=== PATIENT | male | born 1945 | race Caucasian/White ===

== ENCOUNTER 2020-07-26 09:38 | Emergency (ER) | payer MEDICARE ==
[~2020-07-26] VITALS: Ht 177.8 cm; Wt 77.1 kg
== END 2020-07-26 11:06 | disposition home or self-care (01) ==
LOC: ER 09:38
DX: S93.601A Unspecified sprain of right foot, initial encounter (principal); F17.210 Nicotine dependence, cigarettes, uncomplicated; W20.8XXA Other cause of strike by thrown, projected or falling object, initial encounter
CPT/HCPCS: 73630; 99283-25

== ENCOUNTER 2020-10-04 17:40 | Emergency (ER) | payer MEDICARE ==
[~2020-10-04] VITALS: Ht 177.8 cm; Wt 74.8 kg
[2020-10-04 19:39] LABS: Source, Urine Clean Catch
[2020-10-04 19:46] LABS: Appearance, Urine Clear (Clear); Bilirubin, Urine Neg (Neg); Blood, Urine Neg (Neg); Color, Urine Yellow (P-Yellow); Glucose Qualitative, Urine Neg (Neg); Ketones, Urine Neg (Neg); Leukocyte Esterase, Urine Neg (Neg); Nitrite, Urine Neg (Neg); Protein, Urine Neg (Neg); Urobilinogen, Urine NORM (Normal); pH, Urine 6.5 (5.0-8.0)
== END 2020-10-04 20:53 | disposition left against medical advice (07) ==
LOC: ER 17:40
PROVIDERS: Emergency Medicine
DX: M48.56XA Collapsed vertebra, not elsewhere classified, lumbar region, initial encounter for fracture (principal); F17.210 Nicotine dependence, cigarettes, uncomplicated
CPT/HCPCS: 72070; 72100; 74176; 81003; 99284-25

== ENCOUNTER → 2022-02-01 | Outpatient (CLI) | payer MEDICARE | END | disposition home or self-care (01) | LOC: LAB SHORT 07:06 → LAB 07:06 | DX: D49.0 Neoplasm of unspecified behavior of digestive system (principal) | CPT/HCPCS: 88173 ==

== ENCOUNTER 2022-04-25 10:31 | Day surgery (SDC) | payer MEDICARE ==
[~2022-04-25] VITALS: Ht 177.8 cm; Wt 76.4 kg
--- NOTE | 2022-04-25 14:32 | NUR ---
04/25/22 1432 Rivas Gimenez 10MLS OF INJECTABLE NORMAL SALINE MIXED WITH 0.05MG OF EPI TO CREATE A SOLUTION OF NORMAL SALINE WITH EPI 1:200,000. 3MLS OF SOLUTION INJECTED BY DR. LEON AT START OF CASE.
--- NOTE | 2022-04-25 16:46 | NUR ---
04/25/22 7222 Pinky White ARIA DRAIN TEACHING PROVIDED WITH LOG SHEET AND CUP FOR EMPTYING PROVIDED. PT STATES IT IS PAINFUL AT OP SITE BUT REFUSES PAIN MEDICAITON AT THIS TIME. AT CHAIRSIDE. PT TOLERATING PO FLUIDS WELL AND DENIES NAUSEA.
== END 2022-04-25 17:30 | disposition home or self-care (01) ==
LOC: ORSCSDS 10:31
PROVIDERS: Otolaryngology
PROC: 0CB80ZZ Excision of Right Parotid Gland, Open Approach (ICD-10-PCS; principal; 2022-04-25 11:45)
DX: D11.0 Benign neoplasm of parotid gland (principal); I10 Essential (primary) hypertension; F17.210 Nicotine dependence, cigarettes, uncomplicated
CPT/HCPCS: 88307; A9270; J0171; J1100; J1885; J2370; J2405; J2704; J3010; J7120

== ENCOUNTER 2022-11-21 09:13 | Day surgery (SDC) | payer MEDICARE ==
[~2022-11-21] VITALS: Ht 182.9 cm; Wt 74.6 kg
[~2022-11-21 09:13] MED LIST: OMEP20ER PO
[2022-11-21 13:54] VITALS: BP 164/90
== END 2022-11-21 13:53 | disposition home or self-care (01) ==
LOC: ORSCSDS 09:13
PROVIDERS: Internal Medicine Gastroenterology
PROC: 0DB78ZX Excision of Stomach, Pylorus, Via Natural or Artificial Opening Endoscopic, Diagnostic (ICD-10-PCS; principal; 2022-11-21 12:00)
PROC: 0DB98ZX Excision of Duodenum, Via Natural or Artificial Opening Endoscopic, Diagnostic (ICD-10-PCS; principal; 2022-11-21 12:00)
DX: R10.13 Epigastric pain (principal); K29.80 Duodenitis without bleeding; K22.70 Barrett's esophagus without dysplasia; K29.70 Gastritis, unspecified, without bleeding; B96.81 Helicobacter pylori [H. pylori] as the cause of diseases classified elsewhere; F17.210 Nicotine dependence, cigarettes, uncomplicated; Z79.899 Other long term (current) drug therapy
CPT/HCPCS: 88305; 88342; J2704; J7120